=== PATIENT | female | born 1935 | race African-American/Black ===

== ENCOUNTER 2017-04-19 13:00 | Emergency (ER) | payer OTHER ==
[~2017-04-19 13:00] MED LIST: ADALAT CC60 MG PO; AFEDITAB30 MG PO; ALEVE220 MG PO; AMB10 PO; AMLACTIN12 % TOP; AMLACTIN121 TOP; CALTRA600D PO; CATAPRES2 TOP; COLCH6 PO; DOX25 PO; EXFORGE1 TA1 PO; EXFORGE1 TA3 PO; FERROUS SULF325 M1 PO; FLONASE NAS; GLUCOTROL5 PO; HEMOCYTE324 MG PO; IRON325 MG PO; LEVAQUIN750 MG PO; MCZ25 PO; MEDROLPAK4 PO; MULTIPLE VIT PO; MULTIVIT/MIN PO; NASONEX NAS; NEUR100 PO; NEUR600 PO; NIFEDIAC CC60 MG PO; NIFEDICAL XL60 MG PO; ORPHENADRINE100 MG PO; P20 PO; P5 PO; PLAVIX PO; PRAV10 PO; PRAVACHOL40 MG PO; PREDNISOL5 PO; PRILO PO; PRIN20 PO; PROTONIX PO; RX NASAL SPRAY NAS; SINGULAIR1 PO; T PO; ULTRAM50 PO; VICODINTAB PO; VITAMIN D1000 UNI1 PO; VITAMIN D31000 UNIT PO; Z300 PO; ZOCOR40 PO
== END 2017-04-19 14:08 | disposition home or self-care (01) ==
LOC: ER 13:00
DX: M25.551 Pain in right hip (principal); M25.552 Pain in left hip; I10 Essential (primary) hypertension; E78.5 Hyperlipidemia, unspecified; E11.9 Type 2 diabetes mellitus without complications; Z86.73 Personal history of transient ischemic attack (TIA), and cerebral infarction without residual deficits; Z87.891 Personal history of nicotine dependence; Z79.899 Other long term (current) drug therapy
CPT/HCPCS: 73522; 99284